=== PATIENT | female | born 1985 | race Caucasian/White ===

== ENCOUNTER 2021-05-20 04:53 | Emergency (ER) | payer SELFPAY ==
[2021-05-20] MEDS ORDERED: LODINE CAP 300300 MG PO (05:17)
== END 2021-05-20 06:22 | disposition home or self-care (01) ==
LOC: ER1 04:53
DX: K02.9 Dental caries, unspecified (principal); K04.7 Periapical abscess without sinus; E11.9 Type 2 diabetes mellitus without complications; Z88.2 Allergy status to sulfonamides
CPT/HCPCS: 96374; 99283; J3370; J7030